=== PATIENT | male | born 1970 | race Caucasian/White ===

== ENCOUNTER → 2017-02-22 | Outpatient (CLI) | payer MEDICAID ==
--- NOTE | 2017-02-22 13:23 | RADIOLOGY REPORT PS360 ---
[id number] VIEWS HISTORY: SPRAIN R ROTATOR CUFF, INITIAL ENCOUNTER Patient Age: 46 years: Male Ordering Physician: Darci Dean MD TECHNIQUE: 3 views right shoulder COMPARISON : FINDINGS The humeral head and neck are intact with no fracture nor dislocation. Glenohumeral joint intact. Glenoid unremarkable. AC joint intact. The acromion appears intact. The apex the right lung and upper right ribs appear satisfactory Slight roughening and minor sclerosis seen at base of the humeral head towards its junction with greater tuberosity reflects degenerative changes, and possibly reflects impingement pattern. . I believe this pattern is similar to the CT dock guard view from May 2016 which also included this area IMPRESSION: ...... No fracture nor dislocation.. No discrete acute findings Minor additional observations in text
--- NOTE | 2017-02-22 13:23 | RADIOLOGY REPORT PS360 ---
[id number] VIEWS HISTORY: SPRAIN R ROTATOR CUFF, INITIAL ENCOUNTER Patient Age: 46 years: Male Ordering Physician: Darci Dean MD TECHNIQUE: 3 views right shoulder COMPARISON : FINDINGS The humeral head and neck are intact with no fracture nor dislocation. Glenohumeral joint intact. Glenoid unremarkable. AC joint intact. The acromion appears intact. The apex the right lung and upper right ribs appear satisfactory Slight roughening and minor sclerosis seen at base of the humeral head towards its junction with greater tuberosity reflects degenerative changes, and possibly reflects impingement pattern. . I believe this pattern is similar to the CT loan closer view from May 2016 which also included this area IMPRESSION: ...... No fracture nor dislocation.. No discrete acute findings Minor additional observations in text
== END ==
LOC: RAD 10:59
DX: M25.511 Pain in right shoulder (principal)

== ENCOUNTER 2017-03-07 13:51 | Emergency (ER) | payer MEDICAID ==
[~2017-03-07] VITALS: Ht 172.7 cm; Wt 93.4 kg
[~2017-03-07 13:51] MED LIST: DICLOFENAC 50MG50 MG PO; ROBAXIN500 M1 PO
--- NOTE | 2017-03-07 14:10 | Emergency Room Report ---
History of Present Illness Time Seen by MD Pierce Presenting Problem in Triage Pt arrived:Walked Presenting Problem:CARPENTRY STAPLE IN PT R INDEX FINGER. 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 N Clinical Suspician of Infection? N Mental Status: 1 - Regular (Normal Baseline) Sepsis Risk:Low Sepsis Risk Have you (or family members/close friends) recently traveled outside the [place]? N If Yes, where/when: Have you had exposure to infectious disease within the past month? N TB? Other? Specify: Comment The patient has an impaled carpentry staple in his RIGHT index finger. He says he tried to pull it out himself, but it hurt too much. Tetanus status is up-to- date. ALLERGIES Coded Allergies: Penicillins (03/07/17) morphine (NA-NAUSEA 03/07/17) Home Medications Active Scripts DICLOFENAC SODIUM (Diclofenac 50MG) 50 MG PO BID #60 TAB Prov: 06/14/16 History Medical History General CAD? No Angina: No AL: No Hypertension? No Hyperlipidemia? No CHF? No DVT? No PE? No COPD? No Asthma? No Anemia? No GERD? No Gastric ulcers? No GI Bleed? No Hernia? No Thyroid Problems? No Hypothyroidism? No CVA? No Seizures? No Diabetes? No Renal Insuffiency? No End Stage Renal Disease? No UTI? No Stones? No BPH? No GB Disease: No Nephritic Syndrome? No Asplenia? No Hepatitis? No Sickle Cell Disease? No Arthritis? No Migraines? No Cataracts? No Glaucoma? No MRSA? No HIV? No TB? No Anxiety? No Depression? No Cancer? No More? No Immunization Hx DT/Tetanus 06/14/2016 Surgical Hx Previous Surgery?N Social History Smoking Hx Smoker: Never Smoker Tobacco: No Alcohol Alcohol: No Review of Systems All Other Systems Reviewed and Negative Skin see HPI Psychiatric/Neurological denies numbness, denies weakness Physical Exam Vital Signs Vital Signs Date Time Temp Pulse Resp B/P Pulse O2 O2 Flow FiO2 Ox Delivery Rate 03/07 1455 98.1 92 18 139/95 97 03/07 1353 98.1 92 18 139/95 97 General Appearance no apparent distress Respiratory Status No: respiratory distress. Cardiovascular normal peripheral pulses Extremities metallic staple is present in the skin of his RIGHT index finger distal phalanx. It penetrates through and through on the dorsal aspect going through transversely, superficially. Neurovascular status intact. Neurologic alert, no motor/sensory deficits Medical Decision Making LABS/Meds/Orders Pt receiving controlled substance in ED? No Results/Orders Current Medication Orders Sig/Jaime Start time Last Medication Dose Route Stop Time Status Admin Lidocaine HCl 10 ML ONCE ONE 03/07 1430 DC 03/07 SC 03/07 1431 1430 Lidocaine HCl 0 .STK-MED ONE 03/07 1420 DC .ROUTE Procedures FB Removal (excluding Eyes) Progress FOREIGN BODY REMOVAL Performed by: DALE JIANG Consent: Verbal consent obtained. Risks and benefits: risks, benefits and alternatives were discussed Consent given by: patient Patient identity confirmed: verbally with patient Type: Staple, skin Location: RIGHT index finger Anesthesia: 1 percent lidocaine, digital block Patient sedated: no Wound treatment: Foreign body removed in its entirety without difficulty. Wound was scrubbed and irrigated. Bandage applied. Patient tolerance: Patient tolerated the procedure well with no immediate complications Departure Departure Disposition DC Home or Self Care(routine) Clinical Impression Primary Impression: Skin foreign body Condition STABLE Patient Instructions DI for Removal of Foreign Body From Skin Additional Instructions Ibuprofen for pain. Prescriptions Current Visit Scripts Clindamycin Hcl (Clindamycin 300MG) 300 MG PO TID #9 CAP ED Critical Care Critical Care No at 1555
[2017-03-07] MEDS ORDERED: CLINDAMYCIN HC300 MG PO (14:35)
[2017-03-07 14:55] VITALS: BP 139/95
--- OUTSIDE RECORDS SUMMARY | 2017-03-08 20:15 | External Medical Summary Rpt | CCD ---
Author Author , BENTLEY HAGAN Address Unknown Phone [email or web address] Care Team Providers Care Disc Inspector Name Role Phone PRATIBHA MCKINNON Unavailable Unavailable [facility] Unavailable Unavailable MEDICAL, [facility] Un[facility] Unavailable INTERNAL MED, [facility] Unavailable Unavailable [facility] [place], [facility] SCIFRES, SCIFRES Unavailable Unavailable SCIF[facility], SCIFRES Unavailable Unavailable RAND MAR, RAND MAR Unavailable Unavailable Purpose Continuity of Care Document - 03-09-2015 through 2016 Problems Code Diagnosis DOS Provider Status B029 ZOSTER 12-02-2016 [place] WITHOUT [place] COMPLICATIO INTERNAL NS MED H524 PRESBYOPIA 2016 SCIFRES R079 CHEST PAIN 03-09-2015 [facility] [place] M54.2 CERVICALGIA S01.01XA LACERATION WITHOUT FOREIGN BODY OF SCALP, INITIAL ENCOUNTER S09.90XA UNSPECIFIED INJURY OF HEAD, INITIAL ENCOUNTER S43.421A SPRAIN OF RIGHT ROTATOR CUFF CAPSULE, INITIAL ENCOUNTER Medications Na ND Rx Da Fi Fi Am Da Di Ph RX Ph St me C No te ll ll ou ys ag ar # ys at rm s nt no ma ic us Or Da si cy ia de te s n re d VA 63 07 08 21 21 00 CL Ac LA 30 -1 -0 .0 00 IN ti CY 40 0- 4- 00 00 IC ve CL 90 20 20 43 OV 53 17 17 63 PH IR 0 59 AR MA HC CY L 1 GR AM TA BL ET HY 13 03 04 [address] 10 -1 -0 .0 00 IN ti OC 70 3- 7- 00 00 IC ve OD 02 20 20 42 ON 00 17 17 50 PH -A 5 05 AR CE MA TA CY GA NO PH 7. 5- 32 5 IB 67 03 04 30 7 00 CL Ac UP 87 -1 -0 .0 00 IN ti RO 70 3- 7- 00 00 IC ve FE 32 20 20 42 N 00 17 17 50 PH 60 5 06 AR 0 MA MG CY TA BL ET CL 00 02 03 28 7 00 CL Ac IN 59 -0 -0 .0 00 IN ti DA 15 6- 3- 00 00 IC ve MY 70 20 20 42 CI 80 17 17 13 PH N 1 38 AR HC MA L CY 15 0 MG CA PS UL E IB 67 02 03 30 7 00 CL Ac UP 87 -0 -0 .0 00 IN ti RO 70 6- 3- 00 00 IC ve FE 32 20 20 42 N 00 17 17 13 PH 60 5 41 AR 0 MA MG CY TA BL ET HY 13 02 03 [address] 10 -0 -0 .0 00 IN ti OC 70 6- 3- 00 00 IC ve OD 02 20 20 42 ON 00 17 17 13 PH -A 5 40 AR CE MA TA CY GA NO PH 7. 5- 32 5 DI 00 01 02 60 30 00 CL Ac CL 22 -2 -1 .0 00 IN ti OF 82 0- 7- 00 00 IC ve EN 55 20 20 41 AC 01 17 17 97 PH 1 09 AR SO MA D CY EC 50 MG TA B ME 00 01 02 60 30 00 CL Ac TH 60 -2 -1 .0 00 IN ti OC 34 0- 7- 00 00 IC ve AR 48 20 20 41 BA 52 17 17 97 PH MO 1 10 AR L MA 50 CY 0 MG TA BL ET Procedures Procedure DOS Code Location Performer Comment OPH 08721 [employer] MEDICAL 7 XM&EVAL COMPRE NEW PT 1/> VST ECG 83241 [facility] ROUTINE 5 REGIONAL REGIONAL ECG MEDICAL MEDICAL W/LEAST 12 LDS TRCG ONLY W/[place] [address] [facility] TROPONIN 5 REGIONAL REGIONAL [place] [address] [facility] TROPONIN 5 REGIONAL REGIONAL QUANTITAT MEDICAL MEDICAL BRIAN BLOOD 81767 [facility] COUNT 5 REGIONAL REGIONAL COMPLETE MEDICAL MEDICAL AUTOMATED ECG 84420 JUNJOSIE RAND MAR ROUTINE 5 [place] ECG W/LEAST EMERGENCY 12 LDS I&R ONLY COMPREHEN 86176 [place] SIVE 5 REGIONAL REGIONAL METABOLIC MEDICAL MEDICAL PANEL INTRODUCT 70651 [facility] ION 5 REGIONAL REGIONAL NEEDLE/IN MEDICAL MEDICAL TRACATHET ER VEIN RADIOLOGI 79163 [place] C 5 REGIONAL REGIONAL EXAMINATI MEDICAL MEDICAL ON CHEST SING[place] FRONTAL Encounters Encounter Start End Date Code Location Performer Type Date OFFICE 40004 CHHAYA MCKINNON [facility] 7 7 [place] T VISIT INTERNAL 15 MED MINUTES EMERGENCY 74993 JHONJOSIE [facility] DEPT 5 5 [facility] VISIT HIGH EMERGENCY SEVERITY& THREAT [facility] [place] [address] 5 [facility] OUTPATI MEDICAL T EMERGENCY 87016 [place] 5 5 [facility] HIGH/URGE NT SEVERITY
--- OUTSIDE RECORDS SUMMARY | 2017-03-08 20:15 | External Medical Summary Rpt | CCD ---
Author Author , BENTLEY HAGAN Address Unknown Phone [email or web address] Care Team Providers Care Locker Operator Name Role Phone PRATIBHA, PRATIBHA Unavailable Unavailable [facility] Unavailable Unavailable MEDICAL, [facility] Un[facility] INTERNAL MED, [facility] Unavailable Unavailable [facility] [place], [facility] SCIFRES, SCIFRES Unavailable Unavailable SCIFRES, SCIFRES Unavailable Unavailable RAND MAR, RAND MAR Unavailable Unavailable Purpose Continuity of Care Document - 03-09-2015 through 2016 Problems Code Diagnosis DOS Provider Status B029 ZOSTER 12-02-2016 [place] WITHOUT [place] COMPLICATIO INTERNAL NS MED H524 PRESBYOPIA 2016 SCIFRES R079 CHEST PAIN 03-09-2015 [facility] Medications Na ND Rx Da Fi Fi [...] 5 05 AR CE MA TA CY MO NO PH 7. 5- 32 5 IB [...] 5 40 AR CE MA TA CY MO NO PH 7. 5- 32 5 DI [...] Procedure DOS Code Location Performer Comment OPH 10316 [employer] MEDICAL 7 XM&EVAL COMPRE NEW PT 1/> VST ECG 09548 [facility] ROUTINE 5 REGIONAL REGIONAL ECG MEDICAL MEDICAL W/LEAST 12 LDS TRCG ONLY W/[place] I&[place] [address] [place] TROPONIN 5 REGIONAL REGIONAL QUANTITAT MEDICAL MEDICAL BRIAN BLOOD 63743 [facility] COUNT 5 REGIONAL REGIONAL COMPLETE MEDICAL MEDICAL AUTOMATED ECG 16493 VIKRAM RAND MAR ROUTINE 5 [place] ECG W/LEAST EMERGENCY 12 LDS I&[place] [address] [facility] TROPONIN 5 REGIONAL REGIONAL QUANTITAT MEDICAL MEDICAL BRIAN RADIOLOGI 61866 [place] C 5 REGIONAL REGIONAL EXAMINATI MEDICAL MEDICAL ON CHEST S[place] FRONTAL COMPREHEN 78295 [place] [facility] SIVE 5 REGIONAL REGIONAL METABOLIC MEDICAL MEDICAL PANEL INTRODUCT 33608 [facility] ION 5 REGIONAL REGIONAL NEEDLE/IN MEDICAL MEDICAL TRACATHET ER VEIN Encounters Encounter Start End Date Code Location Performer Type Date OFFICE 27225 [facility] PRATIBHA OUTPATIEN 7 7 [facility] T VISIT INTERNAL 15 MED MINUTES [facility] 79403 VIKRAM LINARES DEPT 5 5 [facility] VISIT HIGH EMERGENCY SEVERITY& THREAT FUN EMERGENCY 78765 [facility] 5 5 [facility] HIGH/URGE NT SEVERITY
--- OUTSIDE RECORDS SUMMARY | 2017-03-08 20:15 | External Medical Summary Rpt ---
Author Author BENTLEY Buckley, [employer] Organization [employer] Address Unknown Phone Unavailable
--- OUTSIDE RECORDS SUMMARY | 2017-03-08 20:15 | External Medical Summary Rpt | CCD ---
Demographics Preferred Language Hebrew Marital Status Unknown Zoroastrian Affiliation Unknown Race Unknown Ethnic Group Unknown Author Author , BENTLEY HAGAN Address Unknown Phone [email or web address] [email or web address] Name Date Rout CVX Reac Dose Comm Prov Is Faci e tion ent ider Refu lity Give sed n Td 03-0 9 999 Hist H194 No H194 (alex 3-19 oric lt), 97 al Info adso rmat rbed ion - Sour ce Unsp ecif ied
--- OUTSIDE RECORDS SUMMARY | 2017-03-08 20:15 | External Medical Summary Rpt | CCD ---
Author Author , BENTLEY HAGAN Address Unknown Phone Care Team Providers Care Analysis Reporting Developer Name Role Phone PRATIBHA MCKINNON Unavailable Unavailable [facility] Unavailable Unavailable MEDICAL, [facility] Unavailable INTERNAL MED, [facility] Unavailable Unavailable [...] 5 05 AR CE MA TA CY DC NO PH 7. 5- 32 5 IB [...] 5 40 AR CE MA TA CY DC NO PH 7. 5- 32 5 DI [...] Procedure DOS Code Location Performer Comment OPH 77658 [employer] MEDICAL 7 XM&EVAL COMPRE NEW PT 1/> VST ECG 98737 [place] ROUTINE 5 REGIONAL REGIONAL ECG MEDICAL MEDICAL W/LEAST 12 LDS TRCG ONLY W/[place] [address] [facility] [facility] TROPONIN 5 REGIONAL REGIONAL QUANT[place] [address] [facility] [facility] TROPONIN 5 REGIONAL REGIONAL QUANTITAT MEDICAL MEDICAL BRIAN BLOOD 61599 [place] [facility] COUNT 5 REGIONAL REGIONAL COMPLETE MEDICAL MEDICAL AUTOMATED ECG 16533 JUNJOSIE RAND MAR ROUTINE 5 [place] ECG W/LEAST EMERGENCY 12 LDS I&R ONLY COMPREHEN 21098 [place] [facility] SIVE 5 REGIONAL REGIONAL METABOLIC MEDICAL MEDICAL PANEL INTRODUCT 72017 [place] ION 5 REGIONAL REGIONAL NEEDLE/IN MEDICAL MEDICAL TRACATHET ER VEIN RADIOLOGI 11510 [place] C 5 REGIONAL REGIONAL EXAMINATI MEDICAL MEDICAL ON CHEST [place] FRONTAL Encounters Encounter Start End Date Code Location Performer Type Date OFFICE 01217 CHHAYA MCKINNON [facility] 7 7 [place] T VISIT INTERNAL 15 MED MINUTES EMERGENCY 25203 JHONJOSIE [facility] MILAGROS DEPT 5 5 [facility] VISIT HIGH EMERGENCY SEVERITY& THREAT [facility] [place] [address] 5 [facility] OUTPATI MEDICAL T EMERGENCY 12499 [place] 5 5 [facility] HIGH/URGE NT SEVERITY
--- OUTSIDE RECORDS SUMMARY | 2017-03-08 20:15 | External Medical Summary Rpt | CCD ---
Demographics Preferred Language Danish Marital Status Unknown Yazidism Affiliation Unknown Race Unknown Ethnic Group Unknown Author Author , BENTLEY HAGAN Address Unknown Phone .[employer] Immunization Name Date Rout CVX Reac Dose Comm Prov Is Faci e tion ent ider Refu lity Give sed n Td 03-0 9 999 Hist H194 No H194 (alex 3-19 oric lt), 97 al Info adso rmat rbed ion - Sour ce Unsp ecif ied
--- OUTSIDE RECORDS SUMMARY | 2017-03-08 20:15 | External Medical Summary Rpt | CCD ---
Author Author , BENTLEY HAGAN Address Unknown Phone [email or web address] Care Team Providers Care Tabulating Clerk Name Role Phone PRATIBHA, PRATIBHA Unavailable Unavailable [facility] Unavailable Unavailable MEDICAL, [facility]ICAL [facility] Unavailable Unavailable INTERNAL MED, [facility] Unavailable Unavailable [facility] [place], [facility] SCIFRES, SCIFRES Unavailable Unavailable SCIF[facility], SCIFRES Unavailable Unavailable RAND MAR, RAND MAR Unavailable Unavailable Purpose Continuity of Care Document - 03-09-2015 through 2016 Problems Code Diagnosis DOS Provider Status B029 ZOSTER 12-02-2016 [place] WITHOUT [place] COMPLICATIO INTERNAL NS MED H524 PRESBYOPIA 2016 [...] 5 05 AR CE MA TA CY MS NO PH 7. 5- 32 5 IB [...] 5 40 AR CE MA TA CY MS NO PH 7. 5- 32 5 DI [...] Procedure DOS Code Location Performer Comment OPH 71117 [employer] MEDICAL 7 XM&EVAL COMPRE NEW PT 1/> VST ECG 09876 [place] [facility] ROUTINE 5 REGIONAL REGIONAL ECG MEDICAL MEDICAL W/LEAST 12 LDS TRCG ONLY W/[place] I&[place] [address] [facility] TROPONIN 5 REGIONAL REGIONAL QUANTITAT MEDICAL MEDICAL BRIAN BLOOD 72517 [facility] COUNT 5 REGIONAL REGIONAL COMPLETE MEDICAL MEDICAL AUTOMATED ECG 93034 VIKRAM RAND MAR ROUTINE 5 [place] ECG W/LEAST EMERGENCY 12 LDS [place] [address] [facility] TROPONIN 5 REGIONAL REGIONAL QUANTITAT MEDICAL MEDICAL BRIAN RADIOLOGI 03668 [facility] C 5 REGIONAL REGIONAL EXAMINATI MEDICAL MEDICAL ON CHEST SING[place] FRONTAL COMPREHEN 22668 [facility] SIVE 5 REGIONAL REGIONAL METABOLIC MEDICAL MEDICAL PANEL INTRODUCT 74648 [facility] ION 5 REGIONAL REGIONAL NEEDLE/IN MEDICAL MEDICAL TRACATHET ER VEIN Encounters Encounter Start End Date Code Location Performer Type Date OFFICE 15281 [facility] PRATIBHA OUTPATIEN 7 7 [facility] T VISIT INTERNAL 15 MED MINUTES [facility] QU[facility] 45537 VIKRAM LINARES DEPT 5 5 [facility] VISIT HIGH EMERGENCY SEVERITY& THREAT FUN [facility] 47[facility]IS[facility] HIGH/URGE NT SEVERITY
== END 2017-03-07 14:55 | disposition home or self-care (01) ==
LOC: ER 13:51
PROC: 0HCFXZZ Extirpation of Matter from Right Hand Skin, External Approach (ICD-10-PCS; principal; 2017-03-07)
DX: S60.450A Superficial foreign body of right index finger, initial encounter (principal); W22.8XXA Striking against or struck by other objects, initial encounter; Z88.0 Allergy status to penicillin; Z88.6 Allergy status to analgesic agent